=== PATIENT | female | born 1980 | race Caucasian/White ===

== ENCOUNTER 2022-09-25 08:44 | Emergency (ER) | payer OTHER, SELFPAY ==
--- NOTE | ~2022-09-25 | XR_ITS ---
EXAMINATION: XR THORACIC SPINE CLINICAL INFORMATION: Trauma COMPARISON: None available. TECHNIQUE: 3 views of the thoracic spine were obtained. FINDINGS: There is no fracture or bone destruction seen and the vertebral alignment is normal. There is no disc space narrowing. There is no abnormality of the paraspinal soft tissues. Right upper quadrant surgical clips in the abdomen. The visualized lungs are clear. XR/XR thoracic spine 3V IMPRESSION: No acute fracture or malalignment.
[2022-09-25 09:02] VITALS: BP 169/95; PULSE 65; RESP 18; TEMP 36.8; O2SAT 98; BMI 30.9
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
== END 2022-09-25 11:30 | disposition home or self-care (01) ==
PROVIDERS: Emergency Provider Emergency Medicine; PCP Family Medicine
DX: S23.3XXA Sprain of ligaments of thoracic spine, initial encounter (principal); X58.XXXA Exposure to other specified factors, initial encounter; Y93.9 Activity, unspecified; Y92.9 Unspecified place or not applicable; Y99.9 Unspecified external cause status; Z79.899 Other long term (current) drug therapy
CPT/HCPCS: 72072; 99282; 99283

== ENCOUNTER 2022-11-21 05:24 | Emergency (ER) | payer OTHER, SELFPAY ==
--- NOTE | ~2022-11-21 | CT_ITS ---
EXAMINATION: CT ANGIOGRAM OF THE CHEST WITH AND WITHOUT CONTRAST (CT PULMONARY ANGIOGRAM FOR PE) CLINICAL INFORMATION: Elevated d-dimer. Chest pain. COMPARISON: None available. TECHNIQUE: Prior to contrast administration, noncontrast localization images were obtained. Subsequently, multidetector volumetric imaging was performed from the thoracic inlet to below the diaphragms following the administration of 65 mL Omnipaque 350 intravenous contrast. No contrast reaction reported Sagittal, coronal, and MIP oblique sagittal reformatted images were obtained on the CT workstation, uploaded to PACS, and reviewed. This CT examination was performed using dose optimization techniques as appropriate, variously including the following: *Automated exposure control *Adjustment of mA and/or kV according to patient size (this includes techniques or standardized protocols for targeted exams where dose is matched to indication/reason for exam; i.e. extremities or head) *Use of iterative reconstruction technique Total exam dose-length product 370 mGy-cm FINDINGS: The heart is normal in size. There is no pericardial effusion. No appreciable coronary artery calcifications. Normal caliber thoracic aorta. No pulmonary arterial filling defect to suggest pulmonary embolus. No gross mediastinal or hilar lymphadenopathy. No pathologically enlarged axillary lymph nodes. Central airways are patent. Lungs are well aerated. There is mild dependent atelectasis. There is no lobar consolidation. No pleural effusion or pneumothorax. No suspicious pulmonary nodules. Visualized portion of the upper abdomen demonstrate surgical changes consistent with prior cholecystectomy. No acute osseous injury. CT/CT angio chest PE protocol IMPRESSION: 1. No pulmonary arterial filling defect to suggest pulmonary embolus. 2. Well aerated lungs without lobar consolidation, pleural effusion or pneumothorax. VTE: negative. Fleischner guidelines followed.
--- NOTE | 2022-11-21 05:25 | ECG_ITS ---
Test Reason : CP Blood Pressure : / mmHG Vent. Rate : 069 BPM Atrial Rate : 069 BPM P-R Int : 144 ms QRS Dur : 080 ms QT Int : 402 ms P-R-T Axes : 027 027 028 degrees QTc Int : 430 ms Normal sinus rhythm Nonspecific ST and T wave abnormality Abnormal ECG No previous ECGs available Referred By: Generic ED Physician Electronically Signed By:George Avalos
[2022-11-21 05:37] VITALS: BP 170/111; PULSE 70; RESP 16; BMI 28.3
--- NOTE | 2022-11-21 06:00 | ED_ITS ---
HPI - Chest Pain General Chief Complaint: Chest Pain Stated Complaint: Chest pain/ Shoulder Pain Time Seen by Provider: 11/21/22 06:00 Source: patient Mode of arrival: ambulatory Limitations: no limitations History of Present Illness HPI narrative: Patient history of hypertension, anxiety stress not taking any medication for hypertension as medication ever worked for her. Recently patient's daughter diagnosed with acute intermittent porphyria is still genetic test been done patient claims that since childhood been having dark urine off and on and multiple body complaints but never been diagnosed or seen by specialist. Patient complain of chest discomfort body aches back pain and felt like passing out when she woke up from the sleep also complaining of intermittent dark color urine Related Data Previous Rx's Medication Instructions Recorded ibuprofen 600 mg tablet 600 mg PO TID PRN pain #20 tabs 09/25/22 methocarbamol 750 mg tablet 750 mg PO TID PRN muscle spasm #20 09/25/22 tabs Allergies Allergy/AdvReac Type Severity Reaction Status Date / Time Penicillins [PENICILLINS] Allergy Unknown HIVES Verified 11/21/22 05:41 Sulfa (Sulfonamide Allergy Unknown HIVES, Verified 11/21/22 05:41 Antibiotics) itchy, [SULFA (SULFONAMIDE hives ANTIBIOTICS)] penicillin Allergy Unknown itchy, Uncoded 11/21/22 05:41 hives Review of Systems Review of Systems: Yes all other systems are reviewed and are negative [facility] Social History Social History Alcohol intake: current Alcohol intake frequency: holidays/special occasions only Smoked in Last 30 Days: No Use of substances other than those prescribed or required for medical reasons: No Advance Directives: No Advance Directives Information Provided: No Patient : No Physical Exam Vital Signs: Vital Signs: Last Vital Signs Pulse 70 11/21/22 05:37 Resp 16 11/21/22 05:37 BP 170/111 H 11/21/22 05:37 BMI result Body Mass Index 28.3 Appearance: Alert. Oriented X3. No acute distress. Eyes: PERRLA, No Nystagmus ENT: Pharynx normal. Oral Mucosa moist Neck: Normal inspection. Neck supple. CVS: Normal heart rate and rhythm. Pulses normal. Respiratory: No respiratory distress. Equal air entry bilateral, no wheezing/rales/rhonchi Abdomen: Soft and nontender. Bowel sounds are present, no mass palpable, no CVA tenderness Skin: Skin warm and dry. Normal skin color. Normal skin turgor. Extremities: No lower extremity edema. No calf tenderness Neuro: Oriented X 3. No motor deficit. No sensory deficit.No cerebellar signs , cranial nerves II-XII intact Medical Decision Making Medical Decision Making [facility] Narrative: Patient with clinically vasovagal episode of near-syncope with atypical chest pain urine was normal in color unlikely a porphyria at this time patient advised to follow-up with certified respiratory therapist patient has no shortness of breath D-dimer 247 calf nontender low risk for PE Differential Diagnosis Differential Diagnoses: The differential diagnosis associated with the presentation includes Atypical chest pain/acute porphyria attack/anxiety/vasovagal syncope Lab Data [facility] Lab Attestation statement: I reviewed the patient's lab results. 11/21/22 06:01 11/21/22 06:01 Labs: Lab Results 11/21/22 11/21/22 11/21/22 Range/Units 06:01 06:01 06:01 WBC 6.5 (4.8-10.8) X10*3/uL RBC 4.84 (4.20-5.50) X10*6/uL Hgb 14.4 (12.0-16.0) g/dl Hct 42.5 (37.0-47.0) % MCV 87.8 (80.0-98.0) fL MCH 29.8 (27.0-33.0) pg MCHC 33.9 (31.0-35.0) g/dl RDW 12.6 (11.0-16.0) % Plt Count 194 (160-400) X10*3/uL MPV 11.8 (9.4-12.3) fL Immature Gran % (Auto) 0.2 (0.0-0.4) % Neut % (Auto) 62.1 (45-73) % Lymph % (Auto) 27.7 (20-40) % [place] % (Auto) 7.1 (2-11) % Eos % (Auto) 2.3 (0-4) % Baso % (Auto) 0.6 (0-2) % Lymph # (Auto) 1.8 (1.2-4.9) X10*3/uL [place] # (Auto) 0.5 (0.1-1.2) X10*3/uL Eos # (Auto) 0.2 (0.0-0.4) X10*3/uL Baso # (Auto) 0.0 (0.0-0.2) X10*3/uL Abs Immat Gran (auto) 0.01 (0.00-0.03) X10*3/uL Absolute Neuts (auto) 4.0 (2.0-8.3) x10*3/uL Absolute Nucleated RBC 0.000 (0.0-0.012) X10*3/uL Nucleated RBC % (auto) 0.0 (0.0-0.2) /100WBC D-Dimer High Sensitivty NG/ML Sodium 140 (135-145) mmol/L Potassium 3.8 (3.3-5.1) mmol/L Chloride 109 H (96-108) mmol/L Carbon Dioxide 23 (22-29) mmol/L Anion Gap 12 (12-20) BUN 15 (9-16) mg/dL Creatinine 0.82 (0.5-1.4) mg/dL Estim Creat Clear Calc 90.8 Estimated GFR > 60 Random Glucose 103 (60-115) mg/dL Calcium 9.2 (8.4-10.2) mg/dL Troponin I High Sens < 2.7 (<3.5-17.0) ng/L Urine Color Urine Appearance Urine pH (5.0-9.0) Ur Specific [place] (1.005-1.025) Urine Protein (Neg-Trace) mg/dL Urine Glucose (UA) (Negative) mg/dL Urine Ketones (Negative) mg/dL Urine Blood (Negative) Urine Nitrite (Negative) Ur Leukocyte Esterase (Negative) 11/21/22 11/21/22 Range/Units 06:01 06:35 WBC (4.8-10.8) X10*3/uL RBC (4.20-5.50) X10*6/uL Hgb (12.0-16.0) g/dl Hct (37.0-47.0) % MCV (80.0-98.0) fL MCH (27.0-33.0) pg MCHC (31.0-35.0) g/dl RDW (11.0-16.0) % Plt Count (160-400) X10*3/uL MPV (9.4-12.3) fL Immature Gran % (Auto) (0.0-0.4) % Neut % (Auto) (45-73) % Lymph % (Auto) (20-40) % [place] % (Auto) (2-11) % Eos % (Auto) (0-4) % Baso % (Auto) (0-2) % Lymph # (Auto) (1.2-4.9) X10*3/uL [place] # (Auto) (0.1-1.2) X10*3/uL Eos # (Auto) (0.0-0.4) X10*3/uL Baso # (Auto) (0.0-0.2) X10*3/uL Abs Immat Gran (auto) (0.00-0.03) X10*3/uL Absolute Neuts (auto) (2.0-8.3) x10*3/uL Absolute Nucleated RBC (0.0-0.012) X10*3/uL Nucleated RBC % (auto) (0.0-0.2) /100WBC D-Dimer High Sensitivty 247 NG/ML Sodium (135-145) mmol/L Potassium (3.3-5.1) mmol/L Chloride (96-108) mmol/L Carbon Dioxide (22-29) mmol/L Anion Gap (12-20) BUN (9-16) mg/dL Creatinine (0.5-1.4) mg/dL Estim Creat Clear Calc Estimated GFR Random Glucose (60-115) mg/dL Calcium (8.4-10.2) mg/dL Troponin I High Sens (<3.5-17.0) ng/L Urine Color Yellow Urine Appearance Clear Urine pH 6.0 (5.0-9.0) Ur Specific [place] 1.010 (1.005-1.025) Urine Protein Trace (Neg-Trace) mg/dL Urine Glucose (UA) Negative (Negative) mg/dL Urine Ketones Negative (Negative) mg/dL Urine Blood Negative (Negative) Urine Nitrite Negative (Negative) Ur Leukocyte Esterase Negative (Negative) Independent Interpretation I performed an independent interpretation of an: EKG Interpretation: Normal sinus rhythm heart rate 69 beats per minute normal interval normal axis no acute ST-T changes no acute ischemia Discharge Plan Discharge Clinical Impression: Chest pain, Vasovagal near syncope Patient Disposition: Home, Self-Care Instructions: Chest Pain (ED), Near Syncope (ED) Additional Instructions: Cause of your symptoms not exactly clear your urine is normal color unlikely porphyria attack Follow-up with your PCP/certified respiratory therapist for further evaluation of your condition Avoid stresses/new medication/sunlight Drink plenty of fluids Prescriptions: No Action ibuprofen 600 mg tablet 600 mg PO TID PRN (Reason: pain) Qty: 20 0RF methocarbamol 750 mg tablet 750 mg PO TID PRN (Reason: muscle spasm) Qty: 20 0RF Referrals: Fermín Hoff MD [Physician] - 1 week
--- NOTE | 2022-11-21 06:02 | PC.NURSE ---
20G IV access established right wrist. Line is patent without pain or signs of infiltration.
[2022-11-21 06:06] LABS: MANUAL DIFF FLAG NO
[2022-11-21 06:18] LABS: Anion Gap 12 (12-20); Blood Urea Nitrogen 15 mg/dL (9-16); Calcium 9.2 mg/dL (8.4-10.2); Carbon Dioxide 23 mmol/L (22-29); Chloride 109 mmol/L (96-108); Creatinine Clr Calc Pharmacy 90.8; Estimated Glomerular Filt Rate > 60; Glucose Random 103 mg/dL (60-115); Potassium 3.8 mmol/L (3.3-5.1); Sodium 140 mmol/L (135-145)
[2022-11-21 06:21] VITALS: PULSE 76
[2022-11-21 06:22] LABS: D Dimer High Sensitivity 247 NG/ML
[2022-11-21 06:24] LABS: Basophils Percent Auto 0.6 % (0-2); Eosinophils Absolute Auto 0.2 X10*3/uL (0.0-0.4); Eosinophils Percent Auto 2.3 % (0-4); Hematocrit 42.5 % (37.0-47.0); Hemoglobin 14.4 g/dl (12.0-16.0); Imm Gran Abs Auto 0.01 X10*3/uL (0.00-0.03); Imm Gran Pct Auto 0.2 % (0.0-0.4); Lymphocytes Absolute Auto 1.8 X10*3/uL (1.2-4.9); Lymphocytes Percent Auto 27.7 % (20-40); Mean Corpuscular HGB Conc 33.9 g/dl (31.0-35.0); Mean Corpuscular Hemoglobin 29.8 pg (27.0-33.0); Mean Corpuscular Volume 87.8 fL (80.0-98.0); Mean Platelet Volume 11.8 fL (9.4-12.3); Monocytes Absolute Auto 0.5 X10*3/uL (0.1-1.2); Monocytes Percent Auto 7.1 % (2-11); Neutrophils Percent Auto 62.1 % (45-73); Platelet Count 194 X10*3/uL (160-400); Red Blood Count 4.84 X10*6/uL (4.20-5.50); Red Cell Distribution Width 12.6 % (11.0-16.0); White Blood Count 6.5 X10*3/uL (4.8-10.8)
[2022-11-21 06:27] LABS: Troponin-I High Sensitivity < 2.7 ng/L (<3.5-17.0)
[2022-11-21 06:41] LABS: Appearance Urine Clear; Color Urine Yellow; Glucose Urine UA Negative (Negative); Leukocyte Esterase Urine Negative (Negative); Nitrite Urine Negative (Negative); Urine Blood Negative (Negative); Urine Ketones Negative (Negative); Urine Protein Trace mg/dL (Neg-Trace)
[2022-11-21 07:13] VITALS: BP 160/91; PULSE 69; RESP 22; O2SAT 96
--- NOTE | 2022-11-21 07:17 | PC.NURSE ---
I went to discharge the pt and she stated she does not feel comfortable going home without blood pressure medications. Pt said she is not able to see her doctor anytime soon. I explained to the pt that we do not start blood pressure medications in the ER and that she will be referred to hematology who will be able to help her follow. Pt still stated she does not feel comfortable being discharged. I spoke with Shana SANCHEZ who stated she will speak with the pt and informed oncoming nurses of the situation.
[2022-11-21] MEDS: 0.9 % Sodium Chloride 500 ML 999 ML IV (07:45)
[2022-11-21] MEDS: iohexoL 350 MG/ML 100 ML INFUS..BTL 65 ML IV (08:20)
--- NOTE | 2022-11-21 10:01 | PC.NURSE ---
1 set if blood cultures obtained unable to obtain second set, provider aware. currently in x-ray will give antibiotics when she returns
[2022-11-21 10:05] VITALS: BP 139/98; PULSE 75; RESP 16; O2SAT 97
== END 2022-11-21 10:25 | disposition home or self-care (01) ==
PROVIDERS: Emergency Provider Internal Medicine; PCP Family Medicine
DX: R07.9 Chest pain, unspecified (principal); R55 Syncope and collapse
CPT/HCPCS: 36415; 71275; 80048; 81003; 84484; 85025; 85379; 93005; 96360; 99284; 99285; Q9967

== ENCOUNTER → 2022-11-21 05:25 | Outpatient (BNV) | payer OTHER, SELFPAY | PROVIDERS: Emergency Provider Internal Medicine; PCP Family Medicine; Visit Provider Internal Medicine Cardiovascular Disease | DX: R94.31 Abnormal electrocardiogram [ECG] [EKG] (principal); R07.9 Chest pain, unspecified | CPT/HCPCS: 93010 ==

== ENCOUNTER 2023-11-26 19:15 | Emergency (ER) | payer BC, SELFPAY ==
--- NOTE | 2023-11-26 19:16 | ECG_ITS ---
Test Reason : CHEST PAIN Blood Pressure : / mmHG Vent. Rate : 080 BPM Atrial Rate : 080 BPM P-R Int : 144 ms QRS Dur : 086 ms QT Int : 376 ms P-R-T Axes : 043 009 021 degrees QTc Int : 433 ms Normal sinus rhythm Normal ECG When compared with ECG of 21-NOV-2022 05:32, No significant change was found Referred By: Generic ED Physician Electronically Signed By:JEFFERY HUTSON
--- NOTE | 2023-11-26 19:32 | ED_ITS ---
HPI - Chest Pain General Chief Complaint: Chest Pain Stated Complaint: 210/180 BP, chest pain Time Seen by Provider: 11/26/23 20:20 Source: patient Mode of arrival: ambulatory Limitations: no limitations History of Present Illness ED Provider: adela LE narrative: Patient's history of hypertension on losartan and amlodipine does have this episodes of elevated blood pressure with chest pain and sweating off and on for last 1 year has seen the automatic typewriter inspector and humanities instructor and cementer machine applicator unable to diagnose the cause of her episodes. Patient does have anxiety but usually when these episodes happen patient is not anxious today again similar episodes happened prior to arrival took 1 mg of Ativan and took 50 mg of losartan prior to arrival as she noticed her blood pressure was elevated to 185/122 at home patient's blood pressure on arrival was 180/114 with pulse rate of 76 Related Data Previous Rx's ?Medication ?Instructions ?Recorded ibuprofen 600 mg tablet 600 mg PO TID PRN pain #20 tabs 09/25/22 methocarbamol 750 mg tablet 750 mg PO TID PRN muscle spasm #20 09/25/22 tabs amlodipine 5 mg tablet (Norvasc) 5 mg PO DAILY #30 tabs 11/26/23 Allergies Allergy/AdvReac Type Severity Reaction Status Date / Time Penicillins [PENICILLINS] Allergy Unknown HIVES Verified 11/26/23 19:38 Sulfa (Sulfonamide Allergy Unknown HIVES, Verified 11/26/23 19:38 Antibiotics) itchy, [SULFA (SULFONAMIDE hives ANTIBIOTICS)] penicillin Allergy Unknown itchy, Uncoded 11/21/22 05:41 hives Review of Systems 2 Review of Systems: Yes all other systems are reviewed and are negative [facility] Social History Social History Alcohol intake: current Alcohol intake frequency: holidays/special occasions only Advance Directives: No Advance Directives Information Provided: No Physical Exam 2 Vital Signs: Vital Signs: Last Vital Signs Temp 98.4 F 11/26/23 20:21 Pulse 72 11/26/23 20:21 Resp 21 H 11/26/23 20:21 BP 169/104 H 11/26/23 20:21 Pulse Ox 98 11/26/23 20:21 O2 Del Method Room Air 11/26/23 20:21 BMI result Body Mass Index 30.0 Appearance: Alert. Oriented X3. No acute distress. Eyes: PERRLA, No Nystagmus ENT: Pharynx normal. Oral Mucosa moist Neck: Normal inspection. Neck supple. CVS: Normal heart rate and rhythm. Pulses normal. Respiratory: No respiratory distress. Equal air entry bilateral, no wheezing/rales/rhonchi Abdomen: Soft and nontender. Bowel sounds are present, no mass palpable, no CVA tenderness Skin: Skin warm and dry. Normal skin color. Normal skin turgor. Extremities: No lower extremity edema. No calf tenderness Neuro: Oriented X 3. No motor deficit. No sensory deficit.No cerebellar signs , cranial nerves II-XII intact Course Course Course Narrative: This is a Rapid Medical Examination (RME) performed by Mick Barrientos PA-C in triage. Full HPI, ROS, assessment and treatment plan per primary provider in the Main ED. 43 y/o female with history of HTN on losartan 25 BID, HCTZ 50mg who presents to the ER for evaluation of acute onset of tight/sharp left sided chest pain that radiates to her back and tremors and shakiness that started at 6pm while she was cooking dinner. She felt like she was going to pass out w/ vision changes, diaphoresis w/ cold chills. Has had these episodes occur every couple of months for the last 2 years without clear etiology. Has seen Cardiology, Endocrinology in the past with no significant findings. BP 185/120 at home and took 2 tablets of her losartan and 1mg ativan. Symptoms persisted. clutching her chest in triage. BP 180/114, HR 80s. Plan: EKG, CXR, labs Medical Decision Making Medical Decision Making [facility] Narrative: Patient's history of episodic episodes of flushing/hypotension no diarrhea does have sometimes abdominal discomfort possible she had feels thrombocytosis/carcinoid/better carcinoma syndrome patient has been seen by humanities instructor and cementer machine applicator and workup in progress but has been to rule out so far possibilities of carcinoid/pheochromocytoma. Patient's blood pressure improved during stay in the ER after she took her extra dose of losartan at home patient advised to follow with humanities instructor for further testing for now will start patient on amlodipine 5 mg as needed during episodes of high blood pressure Differential Diagnosis Differential Diagnoses: The differential diagnosis associated with the presentation includes Pheochromocytoma/carcinoid/anxiety/panic Lab Data [facility] Lab Attestation statement: I reviewed the patient's lab results. 11/26/23 20:07 11/26/23 20:07 Labs: Lab Results 11/26/23 11/26/23 Range/Units 20:07 20:49 WBC 6.8 (4.8-10.8) X10*3/uL RBC 4.55 (4.20-5.50) X10*6/uL Hgb 13.9 (12.0-16.0) g/dl Hct 39.3 (37.0-47.0) % MCV 86.4 (80.0-98.0) fL MCH 30.5 (27.0-33.0) pg MCHC 35.4 H (31.0-35.0) g/dl RDW 12.7 (11.0-16.0) % Plt Count 204 (160-400) X10*3/uL MPV 11.4 (9.4-12.3) fL Immature Gran % (Auto) 0.3 (0.0-0.4) % Neut % (Auto) 60.9 (45-73) % Lymph % (Auto) 29.7 (20-40) % [place] % (Auto) 6.3 (2-11) % Eos % (Auto) 2.1 (0-4) % Baso % (Auto) 0.7 (0-2) % Lymph # (Auto) 2.0 (1.2-4.9) X10*3/uL [place] # (Auto) 0.4 (0.1-1.2) X10*3/uL Eos # (Auto) 0.1 (0.0-0.4) X10*3/uL Baso # (Auto) 0.1 (0.0-0.2) X10*3/uL Abs Immat Gran (auto) 0.02 (0.00-0.03) X10*3/uL Absolute Neuts (auto) 4.2 (2.0-8.3) x10*3/uL Absolute Nucleated RBC 0.000 (0.0-0.012) X10*3/uL Nucleated RBC % (auto) 0.0 (0.0-0.2) /100WBC Sodium 141 (135-145) mmol/L Potassium 3.4 (3.3-5.1) mmol/L Chloride 106 (96-108) mmol/L Carbon Dioxide 24 (22-29) mmol/L Anion Gap 14 (12-20) BUN 12 (9-16) mg/dL Creatinine 0.83 (0.5-1.4) mg/dL Estim Creat Clear Calc 88.1 Estimated GFR > 60 Random Glucose 122 H (60-115) mg/dL Calcium 9.9 D (8.4-10.2) mg/dL Magnesium 1.7 (1.6-2.6) mg/dL Total Bilirubin 0.3 (0.0-1.0) mg/dL Direct Bilirubin 0.1 (0.0-0.5) mg/dL AST 16 (5-31) U/L ALT 15 (0-31) U/L Alkaline Phosphatase 49 (39-117) U/L Troponin I High Sens < 2.7 (<3.5-17.0) ng/L Total Protein 7.5 (6.5-8.0) g/dL Albumin 4.4 (3.5-5.0) g/dL Urine Color Yellow Urine Appearance Clear Urine pH 6.5 (5.0-9.0) Ur Specific [place] <= 1.005 (1.005-1.025) Urine Protein Negative (Neg-Trace) mg/dL Urine Glucose (UA) Negative (Negative) mg/dL Urine Ketones Negative (Negative) mg/dL Urine Blood Negative (Negative) Urine Nitrite Negative (Negative) Ur Leukocyte Esterase Negative (Negative) Discharge Plan Discharge Clinical Impression: Hypertension Patient Disposition: Home, Self-Care Instructions: Chronic Hypertension (ED) Additional Instructions: The cause of your episodic elevated blood pressure is not very clear possible you might have pheochromocytoma/carcinoid syndrome which you had workup done as an outpatient with humanities instructor You need to follow up with humanities instructor to review the labs and further testing Take amlodipine 5 mg daily if needed during the episodes to control blood pressure Prescriptions: New amlodipine [Norvasc] 5 mg tablet 5 mg PO DAILY Qty: 30 0RF No Action ibuprofen 600 mg tablet 600 mg PO TID PRN (Reason: pain) Qty: 20 0RF methocarbamol 750 mg tablet 750 mg PO TID PRN (Reason: muscle spasm) Qty: 20 0RF Print Language: Somali
[2023-11-26 19:33] VITALS: BP 180/114; PULSE 76; RESP 18; TEMP 36.6; O2SAT 98
[2023-11-26 20:12] LABS: MANUAL DIFF FLAG NO
[2023-11-26 20:16] LABS: Basophils Absolute Auto 0.1 X10*3/uL (0.0-0.2); Basophils Percent Auto 0.7 % (0-2); Eosinophils Absolute Auto 0.1 X10*3/uL (0.0-0.4); Eosinophils Percent Auto 2.1 % (0-4); Hematocrit 39.3 % (37.0-47.0); Hemoglobin 13.9 g/dl (12.0-16.0); Imm Gran Abs Auto 0.02 X10*3/uL (0.00-0.03); Imm Gran Pct Auto 0.3 % (0.0-0.4); Lymphocytes Percent Auto 29.7 % (20-40); Mean Corpuscular HGB Conc 35.4 g/dl (31.0-35.0); Mean Corpuscular Hemoglobin 30.5 pg (27.0-33.0); Mean Corpuscular Volume 86.4 fL (80.0-98.0); Mean Platelet Volume 11.4 fL (9.4-12.3); Monocytes Absolute Auto 0.4 X10*3/uL (0.1-1.2); Monocytes Percent Auto 6.3 % (2-11); Neutrophils Absolute Auto 4.2 x10*3/uL (2.0-8.3); Neutrophils Percent Auto 60.9 % (45-73); Platelet Count 204 X10*3/uL (160-400); Red Blood Count 4.55 X10*6/uL (4.20-5.50); Red Cell Distribution Width 12.7 % (11.0-16.0); White Blood Count 6.8 X10*3/uL (4.8-10.8)
[2023-11-26 20:21] VITALS: BP 169/104; PULSE 72; RESP 21; TEMP 36.9; O2SAT 98
[2023-11-26 20:29] LABS: Alanine Aminotransferase 15 U/L (0-31); Albumin Level 4.4 g/dL (3.5-5.0); Alkaline Phosphatase 49 U/L (39-117); Anion Gap 14 (12-20); Aspartate Amino Transferase 16 U/L (5-31); Bilirubin Direct 0.1 mg/dL (0.0-0.5); Bilirubin Total 0.3 mg/dL (0.0-1.0); Blood Urea Nitrogen 12 mg/dL (9-16); Calcium 9.9 mg/dL (8.4-10.2); Carbon Dioxide 24 mmol/L (22-29); Chloride 106 mmol/L (96-108); Creatinine Clr Calc Pharmacy 88.1; Estimated Glomerular Filt Rate > 60; Glucose Random 122 mg/dL (60-115); Magnesium 1.7 mg/dL (1.6-2.6); Potassium 3.4 mmol/L (3.3-5.1); Sodium 141 mmol/L (135-145); Total Protein 7.5 g/dL (6.5-8.0)
[2023-11-26 20:38] LABS: Troponin-I High Sensitivity < 2.7 ng/L (<3.5-17.0)
[2023-11-26 20:56] LABS: Appearance Urine Clear; Color Urine Yellow; Glucose Urine UA Negative (Negative); Leukocyte Esterase Urine Negative (Negative); Nitrite Urine Negative (Negative); PH 6.5 (5.0-9.0); Specific Gravity - Urine <= 1.005 (1.005-1.025); Urine Blood Negative (Negative); Urine Ketones Negative (Negative); Urine Protein Negative (Neg-Trace)
[2023-11-26 22:02] VITALS: BP 143/91; PULSE 72; RESP 16; TEMP 36.7; O2SAT 97
[2023-11-26 22:14] VITALS: BP 143/91; PULSE 72; RESP 16; TEMP 36.7; O2SAT 97
== END 2023-11-26 22:15 | disposition home or self-care (01) ==
PROVIDERS: Physician Assistant; Emergency Provider Internal Medicine; PCP Family Medicine
DX: R07.89 Other chest pain (principal); I10 Essential (primary) hypertension; Z79.899 Other long term (current) drug therapy
CPT/HCPCS: 36415; 80048; 80076; 81003; 83735; 84484; 85025; 93005; 99283; 99285